=== PATIENT | male | born 1985 | race Caucasian/White ===

== ENCOUNTER 2022-11-09 06:09 | Emergency (ER) | payer MEDICAID ==
[2022-11-09] MEDS ORDERED: Aluminum Hydroxide/Magnesium Hydroxide/Simethicone Susp 30 ML Cup PO ONE (06:43)
[2022-11-09] MEDS ORDERED: Famotidine 20 MG/2 ML SDV IVPUSH STA (06:44)
[2022-11-09] MEDS ORDERED: Sodium Chloride 0.9% 1,000 ML IV SCH (06:45)
[2022-11-09] MEDS ORDERED: Iopamidol 612 MG/ML 100 ML Bottle IVPUSH ONE (07:06)
[2022-11-09] MEDS ORDERED: Sodium Chloride 0.9% 10 ML Syringe FLUSH ONE (07:06)
[2022-11-09 07:31] LABS: HEMATOCRIT 43.1 % (40.1-51.0); HEMOGLOBIN 15.2 gm/dl (13.7-17.5); MEAN CORPUSCULAR HEMOGLOBIN 28.8 pg (25.7-32.2); MEAN CORPUSCULAR HGB CONC 35.3 g/dl (32.2-35.5); MEAN CORPUSCULAR VOLUME 81.8 fl (79.0-92.2); MEAN PLATELET VOLUME 10.6 fl (9.4-12.3); PLATELET COUNT,PLT 229 K/mm3 (163-337); RED BLOOD CELL COUNT 5.27 M/mm3 (4.63-6.08)
[2022-11-09 07:56] LABS: BAND PERCENT MAN 0 % (0-10); BASOPHILS PERCENT MAN 0 (0.2-1.2); EOSINOPHILS PERCENT MAN 0 % (0.8-7.0); LYMPHOCYTES % ATYPICAL MANUAL 0 %; LYMPHOCYTES PERCENT MAN 11 % (20-40); MONOCYTES PERCENT MAN 7 % (2-10)
[2022-11-09 07:57] LABS: PLATELET COUNT ESTIMATE ADEQUATE
[2022-11-09 08:00] LABS: A/G RATIO 0.5 (1-2); ALBUMIN 2.4 g/dl (3.4-5.0); ANION GAP 18.6 (5-15); BILIRUBIN TOTAL 2.4 mg/dL (0.2-1.0); BUN/CREATININE RATIO 13.1 (14-18); CALCIUM 8.5 mg/dL (8.5-10.1); CREATININE 1.3 mg/dL (0.7-1.3); EST CRCL DRUG DOSING (CG) 86.22 mL/min; POTASSIUM,K 4.6 mEq/L (3.5-5.1); PROTEIN TOTAL,TP 7.5 g/dl (6.4-8.2)
[2022-11-09] MEDS ORDERED: Sodium Chloride 0.9% 1,000 ML IV ONE (08:40)
[2022-11-09] MEDS ORDERED: Piperacillin/Tazobactam 4.5 GM in Sodium Chloride 0.9% 100 ML IV ONE (08:52)
[2022-11-09] MEDS ORDERED: metFORMIN 500 MG Tab PO ONE (08:53)
[2022-11-09] MEDS ORDERED: Insulin Regular, Human 100 Units/ML 3 ML Vial IV ONE (08:54)
== END 2022-11-09 13:37 | disposition home or self-care (01) ==
LOC: JD.ED 06:09
DX: L03.314 Cellulitis of groin (principal); E11.9 Type 2 diabetes mellitus without complications; I10 Essential (primary) hypertension; F17.210 Nicotine dependence, cigarettes, uncomplicated; Z88.8 Allergy status to other drugs, medicaments and biological substances; Z79.84 Long term (current) use of oral hypoglycemic drugs
CPT/HCPCS: 36415; 74177; 80053; 82947; 85007; 85027; 96361; 96365; 96375; 99284; A9270; J1815; J2543; J3490; J7030; Q9967